=== PATIENT | female | born 1940 | race African-American/Black ===

== ENCOUNTER 2017-02-26 05:05 | Emergency (ER) | payer MEDICARE ==
[~2017-02-26] VITALS: Ht 157.5 cm; Wt 86.2 kg
--- NOTE | 2017-02-26 05:22 | PHYS DOC ---
Past Medical History Past Medical History: CAD, GERD, High Cholesterol, Hypertension, Hypothyroid Past Surgical History: Appendectomy, Cholecystectomy, Hysterectomy, Oophorectomy, Other Additional Past Surgical Histo: BLADDER REPAIR, THYROIDECTOMY, VENOUS STRIPPING ; cardiac cath Alcohol Use: None Drug Use: None Adult General Chief Complaint Chief Complaint: DIZZY/LIGHT HEADED HPI HPI Patient is a 76 year old who presents with a two-hour history of dizziness and nausea and vomiting. He states the dizziness is positional especially when she gets up. She called EMS and when EMS got there the patient was orthostatic. Systolic blood pressure went from 180 to 94. Patient had recent stents placed in December 2016. Patient is asymptomatic when laying in the bed however she has if she moves the symptoms are reproducible. She denies any other symptoms. Pertinent exam findings: Cranial nerves II through XII were grossly intact without any focal neurological deficits Heart was regular rate and rhythm without any murmurs Lungs were clear oscillation bilaterally ED course: 0516: Cardiac workup along with a CT of the head and CT of the chest was ordered 0516: EKG NSR 76 no STEMI ED medical decision-making: Signed Pt out to Dr. Nicolle Edmonds to f/u on labs and CT and for final dispo. Review of Systems Review of Systems Constitutional: Denies fever or chills [] Eyes: Denies change in visual acuity, redness, or eye pain [] HENT: Denies nasal congestion or sore throat [] Respiratory: Denies cough or shortness of breath [] Cardiovascular: No additional information not addressed in HPI [] GI: +N/V : Denies dysuria or hematuria [] Musculoskeletal: Denies back pain or joint pain [] Integument: Denies rash or skin lesions [] Neurologic: dizzy Current Medications Current Medications Current Medications Medications (Trade) Dose Ordered Sig/Isidra Start Time Stop Time Status Last Admin Dose Admin Dexamethasone Sodium Phosphate (Decadron) 10 mg 1X ONCE 02/26/17 06:00 02/26/17 06:01 DC 02/26/17 05:40 10 MG Diphenhydramine HCl (Benadryl) 50 mg 1X ONCE 02/26/17 06:00 02/26/17 06:01 DC 02/26/17 05:34 50 MG Info (Do NOT chart on this entry -- for MONITORING) 1 each PRN DAILY PRN 02/26/17 06:00 02/26/17 07:52 DC Iohexol (Omnipaque 300 Mg/ml) 75 ml 1X ONCE 02/26/17 06:15 02/26/17 06:16 DC Sodium Chloride 1,000 ml @ 1,000 mls/hr 1X ONCE 02/26/17 05:30 02/26/17 06:29 DC 02/26/17 05:31 1,000 MLS/HR Allergies Allergies Allergies Coded Allergies Type Severity Reaction Last Updated Verified Iodinated Contrast Media - Oral and Allergy Intermediate MIGRAINES 02/26/17 Yes Penicillins Allergy Intermediate 02/26/17 Yes cephalexin Allergy Intermediate 02/26/17 Yes Physical Exam Physical Exam Constitutional: Well developed, well nourished, no acute distress, non-toxic appearance. [] HENT: Normocephalic, atraumatic, bilateral external ears normal, oropharynx moist, no oral exudates, nose normal. [] Eyes: PERRLA, EOMI, conjunctiva normal, no discharge. [] Neck: Normal range of motion, no tenderness, supple, no stridor. [] Cardiovascular:Heart rate regular rhythm, no murmur [] Lungs & Thorax: Bilateral breath sounds clear to auscultation [] Abdomen: Bowel sounds normal, soft, no tenderness, no masses, no pulsatile masses. [] Skin: Warm, dry, no erythema, no rash. [] Back: No tenderness, no CVA tenderness. [] Extremities: No tenderness, no cyanosis, no clubbing, ROM intact, no edema. [] Neurologic: Alert and oriented X 3, normal motor function, normal sensory function, no focal deficits noted. [] Psychologic: Affect normal, judgement normal, mood normal. [] Current Patient Data Vital Signs Vital Signs Date Time Temp Pulse Resp B/P (MAP) Pulse Ox O2 Delivery O2 Flow Rate FiO2 02/26/17 07:51 185/78 (113) 02/26/17 06:29 80 Room Air 02/26/17 05:45 20 95 02/26/17 05:17 97.7 97.7 Lab Values Laboratory Tests Test 02/26/17 05:13 02/26/17 06:30 White Blood Count 6.1 x10^3/uL (4.0-11.0) Red Blood Count 4.74 x10^6/uL (3.50-5.40) Hemoglobin 14.3 g/dL (12.0-15.5) Hematocrit 41.1 % (36.0-47.0) Mean Corpuscular Volume 87 fL (79-100) Mean Corpuscular Hemoglobin 30 pg (25-35) Mean Corpuscular Hemoglobin Concent 35 g/dL (31-37) Red Cell Distribution Width 14.2 % (11.5-14.5) Platelet Count 264 x10^3/uL (140-400) Neutrophils (%) (Auto) 26 % (31-73) L Lymphocytes (%) (Auto) 61 % (24-48) H Monocytes (%) (Auto) 10 % (0-9) H Eosinophils (%) (Auto) 2 % (0-3) Basophils (%) (Auto) 1 % (0-3) Neutrophils # (Auto) 1.6 x10^3uL (1.8-7.7) L Lymphocytes # (Auto) 3.8 x10^3/uL (1.0-4.8) Monocytes # (Auto) 0.6 x10^3/uL (0.0-1.1) Eosinophils # (Auto) 0.1 x10^3/uL (0.0-0.7) Basophils # (Auto) 0.1 x10^3/uL (0.0-0.2) Sodium Level 142 mmol/L (136-145) Potassium Level 3.4 mmol/L (3.5-5.1) L Chloride Level 106 mmol/L (98-107) Carbon Dioxide Level 25 mmol/L (21-32) Anion Gap 11 (6-14) Blood Urea Nitrogen 13 mg/dL (7-20) Creatinine 0.9 mg/dL (0.6-1.0) Estimated GFR (Cockcroft-Gault) 74.1 BUN/Creatinine Ratio 14 (6-20) Glucose Level 121 mg/dL (70-99) H Calcium Level 9.6 mg/dL (8.5-10.1) Total Bilirubin 0.7 mg/dL (0.2-1.0) Aspartate Amino Transferase (AST) 21 U/L (15-37) Alanine Aminotransferase (ALT) 21 U/L (14-59) Alkaline Phosphatase 77 U/L (46-116) Troponin I Quantitative < 0.017 ng/mL (0.000-0.055) Total Protein 6.8 g/dL (6.4-8.2) Albumin 3.4 g/dL (3.4-5.0) Albumin/Globulin Ratio 1.0 (1.0-1.7) Urine Collection Type Unknown Urine Color Yellow Urine Clarity Clear Urine pH 8.0 Urine Specific [place] 1.010 Urine Protein Negative mg/dL (NEG-TRACE) Urine Glucose (UA) Negative mg/dL (NEG) Urine Ketones (Stick) Negative mg/dL (NEG) Urine Blood Negative (NEG) Urine Nitrite Negative (NEG) Urine Bilirubin Negative (NEG) Urine Urobilinogen Dipstick 0.2 mg/dL (0.2 mg/dL) Urine Leukocyte Esterase Negative (NEG) Urine RBC 0 /HPF (0-2) Urine WBC 0 /HPF (0-4) Urine Squamous Epithelial Cells Few /LPF Urine Bacteria 0 /HPF (0-FEW) Laboratory Tests 02/26/17 05:13 Laboratory Tests 02/26/17 05:13 EKG EKG NSR 76 no STEMI[] Radiology/Procedures Radiology/Procedures [] Course & Med Decision Making Course & Med Decision Making Patient presents with dizziness, nausea and vomiting and hypertension and just not feeling right. Patient had a cardiac workup ordered along with an EKG, CT of the head since the patient's on Plavix and a CT of the chest to rule out dissection since the patient is hypertensive and not feeling right. The labs and CTs are pending at this time. Care will be transferred over to Dr. Nicolle Edmonds who will follow up on labs and CT results and disposition the patient. 0700 I assumed care of the patient at shift change. Full report of history, physical examination was discussed. Labs, CT scans are pending. The patient was up out of bed to walk to the ED barragan bathroom multiple times with minimal assistance from the ED staff. She had no complaints during those ambulations. CT head, CT angiography of the chest, negative per radiologist. Labs unremarkable for acute findings including normal urinalysis. I revisited the patient and her daughter. The patient complains that she is "still dizzy" although it is better. She has had a liter of normal saline. She does not believe that she was dehydrated. She had been drinking plenty of fluids as she always does. She is not able to be specific about her complaint of dizziness, she says "I'm just dizzy". She denies room spinning sensation. She denies feeling faint or feeling like she might faint. Her dizziness does sound somewhat positional and likely labyrinthine to me. It is absent when she lays still, it occurs when she moves her head, and it's worse when she sits up. She's never had positional vertigo in the past. I discussed with the patient and her daughter that she is medically stable for discharge to home. I ask if they're comfortable with this plan and they are comfortable. One of her main concerns was to make sure that this was not her heart, since she recently had cardiac stents placed. I don't believe there is any indication at all that this is cardiac related. She was also concerned that it might be blood pressure related. She checked her blood pressure at home and it was high, it remained high here in the ED. She is due for her morning dose of Lopressor meds. I ask her to go home and take those meds and rest today. I cautioned her to not check her blood pressure over and over but check it once or twice each day for the next 2 or 3 days and if it remains elevated contact her doctor for recheck in the office. Patient and her daughter are comfortable with that plan. [] Dragon Disclaimer Dragon Disclaimer This electronic medical record was generated, in whole or in part, using a voice recognition dictation system. Departure Departure Impression: Primary Impression: Dizziness Additional Impression: Hypertension Disposition: HOME, SELF-CARE Condition: STABLE Referrals: HIRAM SOLER MD (PCP) Patient Instructions: Hypertension, [id number] Additional Instructions: Home to rest today. Take your morning blood pressure medicines when they are due. As we discussed, do not check your blood pressure more than once or twice a day. If you're not better by Tuesday, call Dr. Soler. If your blood pressure consistently stays high, he may want to change or add a medication. If worse, return to ED. Scripts Ondansetron (ZOFRAN ODT) 4 Mg Tab.rapdis 4 MG PO Q6-8HRS Y for NAUSEA/VOMITING, #10 TAB Prov: RAYMOND EDMONDS MD 02/26/17 Problem Qualifiers Additional Impression: Hypertension Hypertension type: essential hypertension Qualified Codes: I10 - Essential ( primary) hypertension JUANITO ZAVALA DO February 26, 2017 05:22 RAYMOND EDMONDS MD February 26, 2017 07:26
[2017-02-26] MEDS ORDERED: IV NORMAL SALINE 1000ML BAG 1,000 ML IV ONE (05:30)
[2017-02-26 05:39] LABS: BASO # 0.1 x10^3/uL (0.0-0.2); BASO % 1 % (0-3); EOS % 2 % (0-3); HEMATOCRIT 41.1 % (36.0-47.0); HEMOGLOBIN 14.3 g/dL (12.0-15.5); LYMPH # 3.8 x10^3/uL (1.0-4.8); LYMPH % 61 % (24-48); MEAN CORPUSCULAR HEMOGLOBIN 30 pg (25-35); MEAN CORPUSCULAR HGB CONC 35 g/dL (31-37); MEAN CORPUSCULAR VOLUME 87 fL (79-100); MONO % 10 % (0-9); NEUT % 26 % (31-73); PLATELET COUNT 264 x10^3/uL (140-400); RED BLOOD COUNT 4.74 x10^6/uL (3.50-5.40); RED CELL DISTRIBUTION WIDTH 14.2 % (11.5-14.5); WHITE BLOOD COUNT 6.1 x10^3/uL (4.0-11.0)
[2017-02-26 05:54] LABS: CALCIUM 9.6 mg/dL (8.5-10.1); CREATININE 0.9 mg/dL (0.6-1.0); GFR 74.1; POTASSIUM 3.4 mmol/L (3.5-5.1)
[2017-02-26 05:59] LABS: ALBUMIN 3.4 g/dL (3.4-5.0); TOTAL BILIRUBIN 0.7 mg/dL (0.2-1.0); TOTAL PROTEIN 6.8 g/dL (6.4-8.2)
[2017-02-26] MEDS ORDERED: diphenhydrAMINE 50 MG/ML VIAL IVP ONE (06:00)
[2017-02-26] MEDS ORDERED: DEXAMETHASONE SOD PHOS 4 MG/ML VIAL IV ONE (06:00)
[2017-02-26] MEDS ORDERED: CONTRAST GIVEN MC PRN (06:00)
[2017-02-26] MEDS ORDERED: IOHEXOL 300 MG/ML 75 ML VIAL IV ONE (06:15)
--- NOTE | 2017-02-26 06:39 | RAD ---
PROCEDURE CT head without contrast. HISTORY Dizziness. TECHNIQUE Helical CT imaging of the brain is performed without IV contrast. PQRS: One or more the following individualized dose reduction techniques were utilized for the study: 1. Automated exposure control. 2. Adjustment of the mA and/or kV according to patient size. 3. Use of iterative reconstruction technique. COMPARISON CT head without contrast January 13, 2014. FINDINGS There is no midline shift or mass effect. No extra-axial fluid collection or intraparenchymal hemorrhage. Louis-white matter differentiation is preserved. Ventricles and sulci are normal for patient age. Incidental cavum septum pellucidum. The visualized paranasal sinuses and mastoid air cells are clear. The globes and orbits appear intact. No acute calvarial abnormality. IMPRESSION No acute intracranial abnormality. Electronically signed by: Jeison Alegria MD (February 26, 2017 06:37:32)
--- NOTE | 2017-02-26 06:43 | RAD ---
PROCEDURE CT chest with contrast, pulmonary angiogram. HISTORY Dizziness. History of heart problems. TECHNIQUE Helical CT imaging of the chest is performed after 75 cc Omnipaque 300 IV contrast using pulmonary angiogram protocol. A coronal 3D MIP reconstruction is performed to better evaluate the pulmonary arteries. PQRS: One or more the following individualized dose reduction techniques were utilized for the study: 1. Automated exposure control. 2. Adjustment of the mA and/or kV according to patient size. 3. Use of iterative reconstruction technique. COMPARISON None. FINDINGS The pulmonary arteries are adequately contrast opacified. There is no CT evidence of pulmonary embolus. No thoracic aortic dissection. There is no adenopathy in the chest. There are subcentimeter bilateral hilar lymph nodes. Cardiac size normal, no pericardial effusion. Tiny hiatal hernia. No pleural effusion. Central airways essentially clear. Mild biapical pleural parenchymal scarring. Discoid atelectasis or scarring in the bilateral lower lobes. No pleural abnormality. Cholecystectomy. Adrenal gland hyperplasia. No compression fracture in the thoracic spine is seen. IMPRESSION No CT evidence of pulmonary embolus. Electronically signed by: Jeison Alegria MD (February 26, 2017 06:42:22)
[2017-02-26 07:00] LABS: BILIRUBIN,URINE NEGATIVE (NEG); GLUCOSE,URINE NEGATIVE (NEG); NITRITE,URINE NEGATIVE (NEG); PROTEIN,URINE NEGATIVE (NEG-TRACE); UROBILINOGEN,URINE 0.2 mg/dL (0.2 mg/dL)
[2017-02-26 07:03] LABS: BACTERIA,URINE 0 /HPF (0-FEW); RBC,URINE 0 /HPF (0-2); SQUAMOUS EPITHELIAL CELL,UR FEW /LPF; WBC,URINE 0 /HPF (0-4)
[2017-02-26] MEDS ORDERED: ONDA4TAB10 PO (07:26)
[2017-02-26 07:51] VITALS: BP 185/78
--- NOTE | 2017-02-26 11:22 | EKG ---
[facility] [address] [place] [address] Test Date: 2017-02-26 Test Time: 05:14:23 Pat Name: HARISH COBOS Department: Room: Gender: F Radiology Rn: TW EMT : 1940 Requested By: JUANITO ZAVALA Order Number: [id number] Reading MD: Dano Enciso Measurements Intervals [place] Rate: 76 P: 129 VA: 148 QRS: -156 QRSD: 94 T: 165 QT: 390 QTc: 443 Interpretive Statements SR LIMB LEAD MISPLACEMENT Electronically Signed On 02-28-2017 14:57:18 CDT by Dano Enciso
== END 2017-02-26 07:52 | disposition home or self-care (01) ==
LOC: ER 05:05
DX: R42 Dizziness and giddiness (principal); I10 Essential (primary) hypertension; R11.2 Nausea with vomiting, unspecified; I25.10 Atherosclerotic heart disease of native coronary artery without angina pectoris; K21.9 Gastro-esophageal reflux disease without esophagitis; E78.00 Pure hypercholesterolemia, unspecified; E03.9 Hypothyroidism, unspecified; Z95.5 Presence of coronary angioplasty implant and graft; Z88.1 Allergy status to other antibiotic agents; Z88.0 Allergy status to penicillin
CPT/HCPCS: 36415; 70450; 71275; 80053; 81001; 84484; 85027; 93005; 96361; 96374; 96375; 99285; J1100; J1200; J7030

== ENCOUNTER 2021-05-15 20:17 | Observation (INO) | payer MEDICARE ==
[~2021-05-15] VITALS: Ht 152.4 cm; Wt 91.5 kg
[~2021-05-15 20:17] MED LIST: ONDA4TAB10 PO
[2021-05-15 21:05] LABS: BILIRUBIN,URINE NEGATIVE (NEG); CLARITY,URINE CLEAR; COLOR,URINE YELLOW; NITRITE,URINE NEGATIVE (NEG); PROTEIN,URINE NEGATIVE (NEG-TRACE); UROBILINOGEN,URINE 0.2 mg/dL (0.2 mg/dL)
[2021-05-15 21:12] LABS: BACTERIA,URINE 0 /HPF (0-FEW); RBC,URINE 0 /HPF (0-2)
--- NOTE | 2021-05-15 21:47 | RAD ---
Exam: Chest one view INDICATION: Nausea TECHNIQUE: Frontal view of the chest Comparisons: None FINDINGS: The cardiomediastinal silhouette and pulmonary vessels are within normal limits. Hazy bibasilar airspace disease. No pleural effusion. IMPRESSION: Patchy bibasilar airspace disease favored to be infectious or inflammatory in etiology. Electronically signed by: Wilfrid Mercedes MD (05/15/2021 9:45 PM) [facility]
[2021-05-15 21:48] LABS: BASO # 0.1 x10^3/uL (0.0-0.2); BASO % 1 % (0-3); EOS # 0.1 x10^3/uL (0.0-0.7); EOS % 1 % (0-3); HEMATOCRIT 42.6 % (36.0-47.0); HEMOGLOBIN 14.4 g/dL (12.0-15.5); LYMPH # 1.4 x10^3/uL (1.0-4.8); LYMPH % 15 % (24-48); MEAN CORPUSCULAR HEMOGLOBIN 30 pg (25-35); MEAN CORPUSCULAR HGB CONC 34 g/dL (31-37); MEAN CORPUSCULAR VOLUME 90 fL (79-100); MONO # 0.6 x10^3/uL (0.0-1.1); MONO % 6 % (0-9); NEUT # 7.3 x10^3/uL (1.8-7.7); NEUT % 78 % (31-73); PLATELET COUNT 245 x10^3/uL (140-400); RED BLOOD COUNT 4.72 x10^6/uL (3.50-5.40); RED CELL DISTRIBUTION WIDTH 14.9 % (11.5-14.5); WHITE BLOOD COUNT 9.3 x10^3/uL (4.0-11.0)
[2021-05-15 21:56] LABS: CALCIUM 9.3 mg/dL (8.5-10.1); CREATININE 0.9 mg/dL (0.6-1.0); GFR 73.3; POTASSIUM 4.4 mmol/L (3.5-5.1)
[2021-05-15 22:02] LABS: ALBUMIN 3.6 g/dL (3.4-5.0); ALBUMIN/GLOBULIN RATIO 1.1 (1.0-1.7); TOTAL BILIRUBIN 0.5 mg/dL (0.2-1.0); TOTAL PROTEIN 6.9 g/dL (6.4-8.2)
--- NOTE | 2021-05-15 22:46 | PHYS DOC ---
Past Medical History Past Medical History: CAD, GERD, High Cholesterol, Hypertension, Hypothyroid Past Surgical History: Appendectomy, Cholecystectomy, Hysterectomy, Oophorectomy, Tonsillectomy, Other Additional Past Surgical Histo: [place] teeth Smoking Status: Never Smoker Alcohol Use: None Drug Use: None General Adult EDM: Chief Complaint: NAUSEA/VOMITING/DIARRHEA HPI: HPI: Patient is a 80 year old female presents to the emergency department complaining of a sudden onset of nausea since 3 PM today. Patient denies any vomiting, diarrhea, abdominal pain,, headaches, dizziness, chest pain, chest palpitations, diaphoretic episodes. Patient reports completing her Covid virus vaccination on . Patient reports she is worried as she had a blockage of her heart with similar symptoms years ago. Patient denies any other physical complaints or physical concerns. Review of Systems: Review of Systems: 14 body systems of review of systems have been reviewed. See HPI for pertinent positives and negative responses, otherwise all other systems are negative, nonpertinent or noncontributory. Constitutional: Negative except as outlined in HPI above. Skin: Negative except as outlined in HPI above. Eyes: Negative except as outlined in HPI above. HENT: Negative except as outlined in HPI above. Respiratory: Negative except as outlined in HPI above. Cardiovascular: Negative except as outlined in HPI above. GI: Negative except as outlined in HPI above. : Negative except as outlined in HPI above. Musculoskeletal: Negative except as outlined in HPI above. Integument: Negative except as outlined in HPI above. Neurologic: Negative except as outlined in HPI above. Endocrine: Negative except as outlined in HPI above. Lymphatic: Negative except as outlined in HPI above. Psychiatric: Negative except as outlined in HPI above. Heart Score: C/O Chest Pain: No Risk Factors: Risk Factors: DM, Current or recent (<one month) smoker, HTN, HLP, family history of CAD, obesity. Risk Scores: Score 0 - 3: 2.5% MACE over next 6 weeks - Discharge Home Score 4 - 6: 20.3% MACE over next 6 weeks - Admit for Clinical Observation Score 7 - 10: 72.7% MACE over next 6 weeks - Early Invasive Strategies Allergies: Allergies: Allergies Coded Allergies Type Severity Reaction Last Updated Verified Iodinated Contrast Media - Oral and Allergy Intermediate MIGRAINES 02/26/17 Yes Penicillins Allergy Intermediate 02/26/17 Yes cephalexin Allergy Intermediate 02/26/17 Yes Physical Exam: PE: Constitutional: Well developed, well nourished, no acute distress, non-toxic appearance. [] HENT: Normocephalic, atraumatic, bilateral external ears normal, oropharynx moist, no oral exudates, nose normal. [] Eyes: PERRLA, EOMI, conjunctiva normal, no discharge. [] Neck: Normal range of motion, no tenderness, supple, no stridor. [] Cardiovascular:Heart rate regular rhythm, no murmur [] Lungs & Thorax: Bilateral breath sounds clear to auscultation [] Abdomen: Bowel sounds normal, soft, no tenderness, no masses, no pulsatile masses. [] Skin: Warm, dry, no erythema, no rash. [] Back: No tenderness, no CVA tenderness. [] Extremities: No tenderness, no cyanosis, no clubbing, ROM intact, no edema. [] Neurologic: Alert and oriented X 3, normal motor function, normal sensory function, no focal deficits noted. [] Psychologic: Affect normal, judgement normal, mood normal. [] Current Patient Data: Labs: Laboratory Tests Test 05/15/21 20:52 05/15/21 21:35 Urine Collection Type Unknown Urine Color Yellow Urine Clarity Clear Urine pH 6.0 (<5.0-8.0) Urine Specific [place] 1.010 (1.000-1.030) Urine Protein Negative mg/dL (NEG-TRACE) Urine Glucose (UA) Negative mg/dL (NEG) Urine Ketones (Stick) Negative mg/dL (NEG) Urine Blood Trace (NEG) Urine Nitrite Negative (NEG) Urine Bilirubin Negative (NEG) Urine Urobilinogen Dipstick 0.2 mg/dL (0.2 mg/dL) Urine Leukocyte Esterase Negative (NEG) Urine RBC 0 /HPF (0-2) Urine WBC 1-4 /HPF (0-4) Urine Squamous Epithelial Cells Few /LPF Urine Bacteria 0 /HPF (0-FEW) Urine Mucus Slight /LPF White Blood Count 9.3 x10^3/uL (4.0-11.0) Red Blood Count 4.72 x10^6/uL (3.50-5.40) Hemoglobin 14.4 g/dL (12.0-15.5) Hematocrit 42.6 % (36.0-47.0) Mean Corpuscular Volume 90 fL (79-100) Mean Corpuscular Hemoglobin 30 pg (25-35) Mean Corpuscular Hemoglobin Concent 34 g/dL (31-37) Red Cell Distribution Width 14.9 % (11.5-14.5) H Platelet Count 245 x10^3/uL (140-400) Neutrophils (%) (Auto) 78 % (31-73) H Lymphocytes (%) (Auto) 15 % (24-48) L Monocytes (%) (Auto) 6 % (0-9) Eosinophils (%) (Auto) 1 % (0-3) Basophils (%) (Auto) 1 % (0-3) Neutrophils # (Auto) 7.3 x10^3/uL (1.8-7.7) Lymphocytes # (Auto) 1.4 x10^3/uL (1.0-4.8) Monocytes # (Auto) 0.6 x10^3/uL (0.0-1.1) Eosinophils # (Auto) 0.1 x10^3/uL (0.0-0.7) Basophils # (Auto) 0.1 x10^3/uL (0.0-0.2) Sodium Level 139 mmol/L (136-145) Potassium Level 4.4 mmol/L (3.5-5.1) Chloride Level 104 mmol/L (98-107) Carbon Dioxide Level 26 mmol/L (21-32) Anion Gap 9 (6-14) Blood Urea Nitrogen 14 mg/dL (7-20) Creatinine 0.9 mg/dL (0.6-1.0) Estimated GFR (Cockcroft-Gault) 73.3 BUN/Creatinine Ratio 16 (6-20) Glucose Level 103 mg/dL (70-99) H Calcium Level 9.3 mg/dL (8.5-10.1) Total Bilirubin Pending Aspartate Amino Transferase (AST) Pending Alanine Aminotransferase (ALT) Pending Alkaline Phosphatase Pending Total Protein Pending Albumin Pending Albumin/Globulin Ratio Pending Laboratory Tests 05/15/21 21:35 Laboratory Tests 05/15/21 21:35 Vital Signs: Vital Signs Date Time Temp Pulse Resp B/P (MAP) Pulse Ox O2 Delivery O2 Flow Rate FiO2 05/15/21 20:52 74 20 181/74 (109) 97 Room Air 05/15/21 20:20 98.4 98.4 EKG: EKG: EKG performed at 2133 shows a normal sinus rhythm without other ectopy, heart rate 67 bpm, IA interval 0.160, QTc interval 0.423, no acute STEMI, no ACS, no acute ischemia appreciated, EKG interpreted by ED attending physician Dr. Dias. Radiology/Procedures: Radiology/Procedures: PATIENT: HARISH COBOS ACCOUNT: [id number] : 1940 LOCATION: ER AGE: 80 SEX: F EXAM STATUS: PRE ER ORD. PHYSICIAN: HARJIT ORTEGA APRN REASON: nausea PROCEDURE: CHEST AP ONLY Exam: Chest one view INDICATION: Nausea TECHNIQUE: Frontal view of the chest Comparisons: None FINDINGS: The cardiomediastinal silhouette and pulmonary vessels are within normal limits. Hazy bibasilar airspace disease. No pleural effusion. IMPRESSION: Patchy bibasilar airspace disease favored to be infectious or inflammatory in et iology. Electronically signed by: Wilfrid Mercedes MD (05/15/2021 9:45 PM) [facility] Course & Med Decision Making: Course & Med Decision Making Pertinent Labs and Imaging studies reviewed. (See chart for details) 80-year-old female, vital signs reviewed, presents to the emergency department complaining of nausea. Physical examination was unremarkable however with edith devlin's history of hypertension and silent heart attack will order cardiorespiratory work-up. Patient was given 4 mg of Zofran, patient reports this relieved her nausea some. Labs unremarkable, however patient's chest x-ray shows bibasilar patchy pneumonia infectious process versus inflammatory disease, recommended patient be admitted for further follow-up, patient is amenable to this plan. Patient's primary care physician Dr. Soler is not on-call this evening, call Dr. Soler's partner Dr. Hoff to review patient's case and ED work-up who agrees patient's case warrants admission to the hospital for observation, recommended starting on azithromycin regimen. Patient will be admitted to [facility] telemetry unit for observation, awaiting room assignment from [facility] supervisor at this time. Patient is neurovascular intact, and no respiratory distress, no apparent distress, vital signs remained stable. Patient is aware of admission. Dragon Disclaimer: Dragon Disclaimer: This electronic medical record was generated, in whole or in part, using a voice recognition dictation system. Departure Departure Impression: Primary Impression: Atypical pneumonia Disposition: ADMITTED INPATIENT Admitting Physician: Eugene Hoff (Admit to [facility] telemetry to Dr. Weller, patient's primary physician is Dr. Soler) Condition: STABLE Referrals: HIRAM SOLER MD (PCP) HARJIT ORTEGA APRN May 15, 2021 22:46
--- NOTE | 2021-05-15 23:14 | EKG ---
[facility] [address] [place] [address] Test Date: 2021-05-15 Test Time: 21:33:37 Pat Name: HARISH COBOS Department: Room: Gender: F Sat Math Tutor: : 1940 Requested By: HARJIT ORTEGA Order Number: [id number] Reading MD: Measurements Intervals [place] Rate: 67 P: 45 [place]: 160 QRS: -34 QRSD: 98 T: 23 QT: 398 QTc: 423 Interpretive Statements SINUS RHYTHM LEFT ATRIAL ABNORMALITY ABNORMAL LEFT AXIS DEVIATION LEFT ANTERIOR FASCICULAR BLOCK CONSIDER LEFT VENTRICULAR HYPERTROPHY ABNORMAL ECG RI6.02 Compared to ECG 05/15/2021 21:32:18 Atrial abnormality now present Atrial flutter no longer present Possible ischemia no longer present Possible ischemia no longer present T-wave abnormality no longer presenT
[2021-05-16] MEDS ORDERED: AZITHROMYCIN 250 MG TABLET. PO ONE
--- NOTE | 2021-05-16 01:00 | NUR ---
The patient, HARISH COBOS, 80 y/o, F admitted by ANDREW HERNANDEZ MD, was given written information regarding hospital policies, unit procedures and contact persons. Valuables were checked and left with her.
[2021-05-16 01:26] VITALS: BP 170/49
[2021-05-16] MEDS ORDERED: LOSA100T14 PO (01:38)
[2021-05-16] MEDS ORDERED: METO100T7 PO (01:38)
[2021-05-16] MEDS ORDERED: AMLO2.5T5 PO (01:38)
[2021-05-16] MEDS ORDERED: POTA10TA12 PO (01:38)
[2021-05-16] MEDS ORDERED: PANT40TA6 PO (01:38)
[2021-05-16] MEDS ORDERED: PITA2TAB2 PO (01:38)
[2021-05-16] MEDS ORDERED: HYDR25TA10 PO (01:38)
[2021-05-16] MEDS ORDERED: LEVO100T5 PO (01:38)
[2021-05-16] MEDS ORDERED: DICL100G28 TP (01:38)
[2021-05-16 03:22] VITALS: BP 171/61
--- NOTE | 2021-05-16 04:13 | EKG ---
[facility] [address] [place] [address] Test Date: 2021-05-15 Test Time: 21:32:18 Pat Name: HARISH COBOS Department: Room: [facility] Gender: F Legal Support Manager: : 1940 Requested By: HARJIT ORTEGA Order Number: [id number] Reading MD: Measurements Intervals [place] Rate: 69 P: ME: QRS: -37 QRSD: 96 T: -35 QT: 404 QTc: 434 Interpretive Statements ATRIAL FLUTTER ABNORMAL LEFT AXIS DEVIATION R-S TRANSITION ZONE IN V LEADS DISPLACED TO THE LEFT LEFT ANTERIOR FASCICULAR BLOCK CONSIDER LEFT VENTRICULAR HYPERTROPHY ST & T ABNORMALITY, CONSIDER INFERIOR ISCHEMIA OR LEFT VENTRICULAR STRAIN T ABNORMALITY IN HIGH LATERAL LEADS ABNORMAL ECG RI6.02 No previous ECG available for comparison
[2021-05-16 07:00] VITALS: BP 164/74
[2021-05-16] MEDS ORDERED: ONDANSETRON ODT 4 MG TAB.RAPDIS. PO PRN (07:45)
[2021-05-16] MEDS ORDERED: PANTOPRAZOLE 40 MG TABLET.DR. PO SCH (08:00)
[2021-05-16] MEDS ORDERED: DICLOFENAC SODIUM 1% TOPICAL GEL 100GM TUBE. TP SCH (09:00)
[2021-05-16] MEDS ORDERED: POTASSIUM CHLORIDE 10 MEQ TABLET.ER. PO SCH (09:00)
[2021-05-16] MEDS ORDERED: METOPROLOL TART IMMED RELEASE 50 MG TABLET. PO SCH (09:00)
[2021-05-16] MEDS ORDERED: hydroCHLOROthiazide 25 MG TABLET PO SCH (09:00)
[2021-05-16] MEDS ORDERED: LOSARTAN POTASSIUM 50 MG TABLET. PO SCH (09:00)
[2021-05-16] MEDS ORDERED: LEVOTHYROXINE 100 MCG TABLET PO SCH (10:30)
[2021-05-16 11:00] VITALS: BP 145/60
--- NOTE | 2021-05-16 11:26 | PDOC ---
Provider Note Date of Service: DATE: 05/16/21 TIME: 11:25 Provider Note Pt seen .H&P and discharge summary dictated.#[id number]. Justifications for Admission Other Justification ANDREW HERNANDEZ MD May 16, 2021 11:26
[2021-05-16] MEDS ORDERED: ONDA8TAB17 PO (11:29)
--- NOTE | 2021-05-16 12:56 | HP ---
ADMIT DATE: 05/16/2021 HISTORY AND PHYSICAL AND DISCHARGE SUMMARY LOCATION: 504. REASON FOR ADMISSION TO THE HOSPITAL: Nausea and vomiting. HISTORY OF PRESENT ILLNESS: The patient is a 80-year-old female, patient of Dr. Hiram Glaser. She had a history of coronary artery disease, hypertension, hyperlipidemia, GERD, hypothyroidism, and she came to the Emergency Room for nausea and vomiting yesterday and denies any chest pain. The patient had a coronary artery disease with some symptoms similar to this last year, she was worried and came and the patient was admitted to the hospital. EKG negative and cardiac enzymes were negative. The patient has no further problems, able to tolerate diet. ALLERGIES: PENICILLIN AND CEPHALOSPORIN. PERSONAL HISTORY: Denies smoking, alcohol, or drug abuse. The patient is up-to-date on vaccination. MEDICATIONS: At home, the patient is on amlodipine 2.5 daily; Voltaren gel daily; hydrochlorothiazide 25 mg daily; levothyroxine 100 mcg daily; losartan 100 mg daily; metoprolol 100 mg twice a day; pantoprazole 40 mg daily; pitavastatin, Livalo is the name of the medicine 2 mg daily; and potassium 10 mEq daily. REVIEW OF SYMPTOMS: Denies any chest pain. No nausea, able to keep her food down. PHYSICAL EXAMINATION: GENERAL: The patient is pleasant, not in any distress. VITAL SIGNS: Shows temperature 98, pulse 75, respirations 24, blood pressure was high 190/79 on admission, 97 on room air. Is coming down nicely 160/74. HEENT: Head is atraumatic. Pupils are equal. Oral cavity, no congestion. NECK: Supple. Thyroid not elevated. CHEST: Symmetrical. CARDIAC: S1, S2. LUNGS: Clear. ABDOMEN: Soft. Bowel sounds present. No mass palpable. EXTERNAL GENITALIA: No Sue. Rectum is deferred. EXTREMITIES: No calf tenderness, no edema. NEUROLOGIC: Moving all extremities. No focal deficits noted. LABORATORY DATA: Shows a white count of 9, hemoglobin 14, and platelets 245. Electrolytes show sodium 139, potassium 4.4, chloride 104, bicarb 26, BUN 14, and creatinine 0.9. LFTs normal. Troponin 2 times was negative. EKG negative. Urine was negative. On chest x-ray some scarring at the bases. Review of CT scan showed a similar scarring with the CT scan 3 years ago. FINAL IMPRESSION: 1. Nausea and vomiting. 2. Scarring in the lung. 3. Coronary artery disease history. 4. Hypertension and hyperlipidemia. PLAN: At this time, the patient was admitted to the hospital and monitored overnight with a radiation monitor. EKG and cardiac enzymes were negative. She is feeling better and the patient was discharged home. Follow up with outpatient in the office. Zofran for nausea and vomiting. Follow up with Cardiology. JESSIE/TONI/NADIA DR: Ivy TID: [id number] CC: HIRAM GLASER MD
[2021-05-16 15:00] VITALS: BP 121/52
--- NOTE | 2021-05-16 17:47 | NUR ---
Discharge Note: HARISH COBOS Discharge instructions and discharge home medications reviewed with Patient and a copy given. All questions have been answered and understanding verbalized. The following instructions and handouts were given: Patient given education regarding discharge instructions and follow ups. Discontinued lines and drains: IV removed per protocol. Patient discharged home, picked up by daughter.
[2021-05-16] MEDS ORDERED: ATORVASTATIN CALCIUM 10 MG TABLET. PO SCH (21:00)
== END 2021-05-16 17:30 | disposition home or self-care (01) ==
LOC: ER 20:17 → 5 NORTH 05-16 00:24
PROVIDERS: ADMIT Internal Medicine; ATTEND Internal Medicine
DX: J18.9 Pneumonia, unspecified organism (principal); R11.2 Nausea with vomiting, unspecified; R19.7 Diarrhea, unspecified; I25.10 Atherosclerotic heart disease of native coronary artery without angina pectoris; K21.9 Gastro-esophageal reflux disease without esophagitis; I10 Essential (primary) hypertension; E78.5 Hyperlipidemia, unspecified; E03.9 Hypothyroidism, unspecified; E78.00 Pure hypercholesterolemia, unspecified; Z90.49 Acquired absence of other specified parts of digestive tract; Z90.710 Acquired absence of both cervix and uterus; Z98.890 Other specified postprocedural states
CPT/HCPCS: 36415; 71045; 80053; 81001; 84484; 85025; 93005; 99285; G0378; G0379